=== PATIENT | female | born 1995 | race Caucasian/White ===

== ENCOUNTER 2017-05-18 13:46 | Emergency (ER) | payer OTHER ==
[~2017-05-18] VITALS: Ht 162.6 cm; Wt 59.1 kg
[2017-05-18 14:15] LABS: BASOPHILS % (AUTO) 0.4 % (0.0-2.0); EOSINOPHILS % (AUTO) 0.7 % (1.0-6.0); HEMATOCRIT 36.7 % (36-46); HEMOGLOBIN 12.7 g/dL (12.0-16.0); LYMPHOCYTES # (AUTO) 4.7 K/uL (1.0-4.8); LYMPHOCYTES % (AUTO) 59.1 % (22.0-44.0); MEAN CORPUSCULAR HEMOGLOBIN 27.7 pg (26.0-34.0); MEAN CORPUSCULAR HGB CONC 34.5 G/dL (31.0-37.0); MEAN CORPUSCULAR VOLUME 80 fL (80-100); MONOCYTES # (AUTO) 0.8 K/uL (0.1-1.0); MONOCYTES % (AUTO) 10.4 % (2.0-9.0); NEUTROPHILS # (AUTO) 2.4 K/uL (1.8-7.7); NEUTROPHILS % (AUTO) 29.4 % (40.0-70.0); PLATELET COUNT (AUTO) 224 K/uL (150-450); RED BLOOD CELL COUNT(AUTO) 4.58 MIL/uL (4.00-5.20); RED CELL DISTRIBUTION WIDTH 13.7 % (11.5-14.5)
[2017-05-18] MEDS ORDERED: ONDANSETRON HCL 4 MG/2 ML VIAL IVP ONE (14:30)
[2017-05-18] MEDS ORDERED: DONNATAL/LIDOCAINE/MAALOX 55 ML BOTTLE PO ONE (14:30)
[2017-05-18] MEDS ORDERED: SODIUM CHLORIDE 0.9% 1,000 ML IV ONE (14:30)
[2017-05-18 14:35] LABS: ALBUMIN 3.9 g/dL (3.4-5.0); BILIRUBIN,TOTAL 0.5 mg/dL (0.1-1.0); CALCIUM, TOTAL 9.4 mg/dL (8.8-10.5); CREATININE 1.23 mg/dL (0.60-1.30); TOTAL PROTEIN, SERUM 7.4 g/dL (6.4-8.2)
[2017-05-18 14:39] LABS: POTASSIUM 2.9 mmol/L (3.5-5.1)
[2017-05-18 15:00] VITALS: BP 118/77
[2017-05-18] MEDS ORDERED: POTASSIUM CHL 10 MEQ/WATER 50 ML IV SCH (15:30)
[2017-05-18 16:00] LABS: AMPHET/METH SCREEN,URINE POSITIVE (NEGATIVE); BARBITURATE SCREEN, URINE NEGATIVE (NEGATIVE); BENZODIAZEPINES SCREEN,URINE NEGATIVE (NEGATIVE); CANNABINOID SCREEN,URINE POSITIVE (NEGATIVE); COCAINE SCREEN,URINE NEGATIVE (NEGATIVE); METHADONE SCREEN, URINE NEGATIVE (NEGATIVE); OPIATE SCREEN,URINE POSITIVE (NEGATIVE)
[2017-05-18 16:01] LABS: PHENCYCLIDINE SCREEN,URINE NEGATIVE (NEGATIVE)
[2017-05-18 16:17] LABS: APPEARANCE,URINE TURBID (CLEAR); BILIRUBIN,URINE NEGATIVE (NEGATIVE); GLUCOSE, URINE (UA) NEGATIVE (NEGATIVE); KETONES,URINE 15 mg/dL (NEGATIVE); LEUKOCYTE ESTERASE ,URINE NEGATIVE (NEGATIVE); NITRATE,URINE NEGATIVE (NEGATIVE); PH,URINE 6.5 (5.0-8.0); PROTEIN,URINE POS 1+ (NEGATIVE)
[2017-05-18 16:25] LABS: BACTERIA,URINE Many /HPF (None Seen); OCCULT BLOOD,URINE TRACE (NEGATIVE); RBC,URINE 0-2 /HPF (0-2); WBC,URINE 0-2 /HPF (0-5)
[2017-05-18 16:26] LABS: SQUAMOUS EPITHELIAL CELL,UR Many /LPF (None Seen)
== END 2017-05-18 15:59 | disposition left against medical advice (07) ==
LOC: EMS 13:47
DX: R10.13 Epigastric pain (principal); E87.6 Hypokalemia; F15.90 Other stimulant use, unspecified, uncomplicated
CPT/HCPCS: 36415; 80053; 80307; 81001; 83690; 84703; 85025; 87086; 96361; 96374; 99284; G0480; J2405; J3480; J7030; Z7610

== ENCOUNTER 2017-07-03 15:59 | Emergency (ER) | payer OTHER ==
[~2017-07-03] VITALS: Ht 162.6 cm; Wt 59.1 kg
[2017-07-03 16:03] VITALS: BP 115/64
== END 2017-07-03 16:47 | disposition left against medical advice (07) ==
LOC: EMS 16:04
DX: Z53.21 Procedure and treatment not carried out due to patient leaving prior to being seen by health care provider (principal)
CPT/HCPCS: 93005

== ENCOUNTER 2017-12-02 17:41 | Emergency (ER) | payer SELFPAY ==
[~2017-12-02] VITALS: Ht 162.6 cm; Wt 50.5 kg
[2017-12-02 20:07] LABS: BASOPHILS % (AUTO) 0.4 % (0.0-2.0); HEMATOCRIT 39.7 % (36-46); HEMOGLOBIN 13.5 g/dL (12.0-16.0); LYMPHOCYTES # (AUTO) 0.8 K/uL (1.0-4.8); LYMPHOCYTES % (AUTO) 10.8 % (22.0-44.0); MEAN CORPUSCULAR HEMOGLOBIN 28.3 pg (26.0-34.0); MEAN CORPUSCULAR VOLUME 84 fL (80-100); MONOCYTES # (AUTO) 0.5 K/uL (0.1-1.0); MONOCYTES % (AUTO) 7.2 % (2.0-9.0); NEUTROPHILS # (AUTO) 5.9 K/uL (1.8-7.7); NEUTROPHILS % (AUTO) 80.6 % (40.0-70.0); PLATELET COUNT (AUTO) 183 K/uL (150-450); RED BLOOD CELL COUNT(AUTO) 4.76 MIL/uL (4.00-5.20); RED CELL DISTRIBUTION WIDTH 12.9 % (11.5-14.5)
[2017-12-02 20:11] LABS: APPEARANCE,URINE CLOUDY (CLEAR); BILIRUBIN,URINE NEGATIVE (NEGATIVE); GLUCOSE, URINE (UA) NEGATIVE (NEGATIVE); KETONES,URINE NEGATIVE (NEGATIVE); LEUKOCYTE ESTERASE ,URINE TRACE (NEGATIVE); NITRATE,URINE NEGATIVE (NEGATIVE); OCCULT BLOOD,URINE NEGATIVE (NEGATIVE); PH,URINE 6.5 (5.0-8.0); PROTEIN,URINE NEGATIVE (NEGATIVE); UROBILINOGEN,URINE 0.2 mg/dL (<=1.0)
[2017-12-02 20:20] LABS: ANION GAP 4 mmol/L (8-16); CALCIUM, TOTAL 8.8 mg/dL (8.8-10.5); CARBON DIOXIDE 31 mmol/L (22-29); CHLORIDE 104 mmol/L (98-107); CREATININE 0.78 mg/dL (0.60-1.30); GLOMERULAR FILTR. RATE CALC > 60 mL/min (>60); GLUCOSE,RANDOM 91 mg/dL (70-110); POTASSIUM 3.7 mmol/L (3.5-5.1); SODIUM SERUM 139 mmol/L (136-145); UREA NITROGEN, BLOOD 11 mg/dL (7-18)
[2017-12-02 20:27] LABS: BACTERIA,URINE Rare /HPF (None Seen); RBC,URINE 0-2 /HPF (0-2); SQUAMOUS EPITHELIAL CELL,UR Few /LPF (None Seen)
[2017-12-02 20:51] LABS: ALANINE AMINOTRANSFERASE 239 U/L (12-78); ALBUMIN 3.8 g/dL (3.4-5.0); ALKALINE PHOSPHATASE 100 U/L (46-116); ASPARTATE AMINOTRANSFERASE 454 U/L (15-37); BILIRUBIN,TOTAL 0.5 mg/dL (0.1-1.0); CREATINE KINASE MB 1.9 ng/mL (0-5); CREATINE KINASE, TOTAL 93 U/L (26-192); TOTAL PROTEIN, SERUM 7.1 g/dL (6.4-8.2)
[2017-12-02 21:52] VITALS: BP 112/71
== END 2017-12-02 21:53 | disposition home or self-care (01) ==
LOC: EMS 17:42
DX: R07.9 Chest pain, unspecified (principal); F15.10 Other stimulant abuse, uncomplicated; F12.90 Cannabis use, unspecified, uncomplicated; F17.210 Nicotine dependence, cigarettes, uncomplicated
CPT/HCPCS: 93005; 99285

== ENCOUNTER 2021-11-24 22:27 | Emergency (ER) | payer OTHER ==
[~2021-11-24] VITALS: Ht 162.6 cm; Wt 61.4 kg
[2021-11-25 01:15] VITALS: BP 104/69
[2021-11-25 01:29] LABS: APPEARANCE,URINE TURBID (CLEAR); BILIRUBIN,URINE NEGATIVE (NEGATIVE); GLUCOSE, URINE (UA) NEGATIVE (NEGATIVE); KETONES,URINE NEGATIVE (NEGATIVE); LEUKOCYTE ESTERASE ,URINE NEGATIVE (NEGATIVE); NITRATE,URINE NEGATIVE (NEGATIVE); OCCULT BLOOD,URINE NEGATIVE (NEGATIVE); PROTEIN,URINE TRACE mg/dL (NEGATIVE); SPECIFIC GRAVITIY, URINE 1.019 (1.003-1.030)
[2021-11-25] MEDS ORDERED: DOXY-354 PO (01:54)
[2021-11-25] MEDS ORDERED: FLUCONAZOLE 150 MG TABLET PO ONE (02:00)
[2021-11-25] MEDS ORDERED: CefTRIAXone SODIUM 1 GM/VIAL IM ONE (02:00)
[2021-11-25] MEDS ORDERED: DOXYCYCLINE HYCLATE 100 MG TABLET PO ONE (02:00)
[2021-11-25] MEDS ORDERED: LIDOCAINE/PF 1% 2 ML VIAL IM ONE (02:00)
== END 2021-11-25 02:46 | disposition home or self-care (01) ==
LOC: EMS 22:44
DX: N89.8 Other specified noninflammatory disorders of vagina (principal); F15.90 Other stimulant use, unspecified, uncomplicated; F12.90 Cannabis use, unspecified, uncomplicated; F17.210 Nicotine dependence, cigarettes, uncomplicated
CPT/HCPCS: 99283; 81003; 84703; 87210; 87491; 87591; 96372; J0696; J3490

== ENCOUNTER 2022-01-15 01:13 | Emergency (ER) | payer OTHER ==
[~2022-01-15] VITALS: Ht 162.6 cm; Wt 54.5 kg
[~2022-01-15 01:13] MED LIST: DOXY-354 PO
[2022-01-15 01:15] VITALS: BP 108/75
== END 2022-01-15 03:51 | disposition left against medical advice (07) ==
LOC: EMS 01:19
DX: Z53.21 Procedure and treatment not carried out due to patient leaving prior to being seen by health care provider (principal)

== ENCOUNTER 2022-01-18 23:53 | Emergency (ER) | payer OTHER ==
[~2022-01-18] VITALS: Ht 162.6 cm; Wt 52.3 kg
[2022-01-19] MEDS ORDERED: MORPHINE SULFATE 4 MG/ML SYRINGE IVP ONE (01:00)
[2022-01-19] MEDS ORDERED: PERTUSS(ACELL),DIPH,TET VAC/PF 0.5 ML SYRINGE IM. ONE (01:00)
[2022-01-19] MEDS ORDERED: ONDANSETRON HCL 4 MG/2 ML VIAL IVP ONE (01:00)
[2022-01-19 01:29] LABS: COVID AG,FIA SOURCE NASAL SWAB
[2022-01-19 01:30] LABS: BASOPHILS % (AUTO) 0.4 % (0.0-2.0); EOSINOPHILS % (AUTO) 1.3 % (1.0-6.0); HEMATOCRIT 37.2 % (36-46); HEMOGLOBIN 12.3 g/dL (12.0-16.0); LYMPHOCYTES # (AUTO) 1.7 K/uL (1.0-4.8); LYMPHOCYTES % (AUTO) 10.6 % (22.0-44.0); MEAN CORPUSCULAR HEMOGLOBIN 27.5 pg (26.0-34.0); MEAN CORPUSCULAR HGB CONC 33.2 G/dL (31.0-37.0); MEAN CORPUSCULAR VOLUME 83 fL (80-100); MONOCYTES % (AUTO) 6.1 % (2.0-9.0); NEUTROPHILS # (AUTO) 13.3 K/uL (1.8-7.7); NEUTROPHILS % (AUTO) 81.6 % (40.0-70.0); PLATELET COUNT (AUTO) 275 K/uL (150-450); RED CELL DISTRIBUTION WIDTH 13.4 % (11.5-14.5)
[2022-01-19 01:46] LABS: PROTHROMBIN TIME 10.8 SEC (9.4-11.6)
[2022-01-19 01:52] LABS: ALANINE AMINOTRANSFERASE 29 U/L (12-78); ALKALINE PHOSPHATASE 81 U/L (46-116); ANION GAP 12 mmol/L (8-16); ASPARTATE AMINOTRANSFERASE 25 U/L (15-37); BILIRUBIN,TOTAL 0.4 mg/dL (0.1-1.0); CALCIUM, TOTAL 9.6 mg/dL (8.8-10.5); CARBON DIOXIDE 24 mmol/L (22-29); CHLORIDE 106 mmol/L (98-107); CREATININE 0.94 mg/dL (0.60-1.30); GLUCOSE,RANDOM 117 mg/dL (70-110); HCG,QUANTITATIVE < 1 mIU/mL (0-6); SODIUM SERUM 142 mmol/L (136-145); TOTAL PROTEIN, SERUM 7.4 g/dL (6.4-8.2); UREA NITROGEN, BLOOD 13 mg/dL (7-18)
[2022-01-19 01:53] LABS: GLOMERULAR FILTR. RATE CALC > 60 mL/min (>60)
[2022-01-19 03:24] VITALS: BP 137/74
== END 2022-01-19 05:53 | disposition short-term general hospital (02) ==
LOC: EMS 23:53
DX: S02.19XA Other fracture of base of skull, initial encounter for closed fracture (principal); S01.311A Laceration without foreign body of right ear, initial encounter; S01.81XA Laceration without foreign body of other part of head, initial encounter; Z20.822 Contact with and (suspected) exposure to COVID-19; F10.20 Alcohol dependence, uncomplicated; F15.10 Other stimulant abuse, uncomplicated; F17.210 Nicotine dependence, cigarettes, uncomplicated; R40.0 Somnolence; Y04.8XXA Assault by other bodily force, initial encounter; Y93.89 Activity, other specified; Y92.89 Other specified places as the place of occurrence of the external cause; Y99.8 Other external cause status
CPT/HCPCS: 99291; 87426; 80053; 84702; 85025; 85610; 85730; 36415; 70450; 96374; 96375; 70486; 72125; 90715; 90471; 96372; G0480; J0690; J2270; J2405